=== PATIENT | female | born 1965 | race Caucasian/White ===

== ENCOUNTER 2016-08-13 10:15 | Emergency (ER) | payer OTHER ==
[2016-08-13 10:43] LABS: HEMOGLOBIN 13.9 gm/dl (12.3-15.3); RED BLOOD COUNT 5.09 M/UL (4.00-5.10); WHITE BLOOD COUNT 11.8 K/UL (4.5-11.0)
[2016-08-13 11:04] LABS: BUN/CREATININE RATIO 14 (0-10)
== END 2016-08-13 13:25 | disposition home or self-care (01) ==
LOC: ER1 10:15
PROVIDERS: Family Medicine
DX: J44.9 Chronic obstructive pulmonary disease, unspecified (principal); I10 Essential (primary) hypertension; Z90.49 Acquired absence of other specified parts of digestive tract; Z79.899 Other long term (current) drug therapy
CPT/HCPCS: 36415; 71020; 80053; 82550; 82553; 83874; 84484; 85025; 93005; 99285; J2930

== ENCOUNTER → 2020-03-31 | Outpatient (CLI) | payer MEDICARE, SELFPAY ==
[~2020-03-31] MED LIST: ASPIR 8181 MG PO; AUGMENTIN 875-1 EACH PO; CEFEPIME 22 GM/100 M IV; CEFEPIME-D2 GM/50 ML IV; CLEOCIN HCL300 MG PO; DOXYCYCLINE HY100 M2 PO; ELIQUIS 2.5 MG2.5 MG PO; ELIQUIS2.5 MG PO; FERROUS SULFAT325 M2 PO; HYDROCODON-ACE1 EAC6 PO; HYDROCORTISO453.6 G2 TOP; KEFLEX CAP 500500 MG PO; LEVOTHYROXINE100 MCG PO; LEVOTHYROXINE25 MCG PO; LORTAB 7.5-3251 EACH PO; MEDROL4 MG PO; NAPROSYN500 MG PO; NITROSTAT0.4 MG SL; NORVASC10 MG PO; NYSTATIN1 EAC2 MC; NYSTATIN60 GM TP; OXYCODON-ACETA1 EAC1 PO; PERCOCET 5/325 T1 EA PO; POLYETHYLENE GL17 GM PO; PREDNISONE 50 M50 MG PO; PYRIDIUM100 MG PO; ROCEPHIN 1 GM AD1 GM IV; SENNA-TIME S T1 EACH PO; TYLENOL PM PO; VENTOLIN HFA 66.7 GM INH; ZOFRAN 4 MG TAB4 MG PO; ZOFRAN ODT 4 MG4 MG PO
[2020-03-31 13:18] LABS: HEMOGLOBIN 13.9 gm/dl (12.3-15.3); RED BLOOD COUNT 5.73 M/UL (4.00-5.10); WHITE BLOOD COUNT 13.9 K/UL (4.5-11.0)
[2020-03-31 13:44] LABS: BUN/CREATININE RATIO 12 (0-10)
== END ==
LOC: OPSV2 12:00 → EDSTATUS 12:00 → OPSV2 12:10
PROVIDERS: Orthopaedic Surgery
DX: Z01.818 Encounter for other preprocedural examination (principal); Z98.890 Other specified postprocedural states; R94.31 Abnormal electrocardiogram [ECG] [EKG]
CPT/HCPCS: 36415; 80048; 85025; 87081; 87086; 93005

== ENCOUNTER → 2020-04-06 | Outpatient (CLI) | payer MEDICARE ==
[2020-04-06 12:58] LABS: BUN/CREATININE RATIO 21 (0-10)
== END ==
LOC: OPSV 10:38
PROVIDERS: Orthopaedic Surgery
DX: Z53.8 Procedure and treatment not carried out for other reasons (principal)
CPT/HCPCS: 80048; 86850; 86900; 86901

== ENCOUNTER 2020-04-07 05:38 | Inpatient (IN) | payer MEDICARE, SELFPAY ==
[~2020-04-07] VITALS: Ht 170.2 cm; Wt 120.2 kg
[~2020-04-07 05:38] MED LIST changes: -CEFEPIME-D2 GM/50 ML IV; -FERROUS SULFAT325 M2 PO; -HYDROCODON-ACE1 EAC6 PO; -LEVOTHYROXINE25 MCG PO; -OXYCODON-ACETA1 EAC1 PO; -POLYETHYLENE GL17 GM PO
[2020-04-07] MEDS ORDERED: HYDROCODON-ACE1 EAC6 PO (06:50)
[2020-04-07] MEDS ORDERED: ELIQUIS2.5 MG PO (14:22)
[2020-04-07] MEDS ORDERED: OXYCODON-ACETA1 EAC1 PO (14:22)
[2020-04-08 03:39] LABS: HEMOGLOBIN 9.7 gm/dl (12.3-15.3); RED BLOOD COUNT 4.06 M/UL (4.00-5.10); WHITE BLOOD COUNT 22.5 K/UL (4.5-11.0)
[2020-04-09 03:01] LABS: HEMOGLOBIN 8.2 gm/dl (12.3-15.3); WHITE BLOOD COUNT 17.6 K/UL (4.5-11.0)
[2020-04-09 03:03] LABS: RED BLOOD COUNT 3.39 M/UL (4.00-5.10)
--- NOTE | 2020-04-09 12:45 | NUR ---
CHANGED LEFT KNEE DRSGN , PAINTED SIVAN AND SUTURES WITH BETADINE PER [facility] PA V/O. EDGES APPROXIMATED WELL , NO REDNESS NOTED OR DRGN ADAPTIC THEN APPLIED, LIGHTLY WRAPPED WITH PREETHI TO HOLD IN PLACE , HEMOVAC LEFT IN PLACE 30 CC WAS EMPYTED,PT TOLERTED WELL.
[2020-04-10 02:53] LABS: HEMOGLOBIN 7.4 gm/dl (12.3-15.3); RED BLOOD COUNT 3.08 M/UL (4.00-5.10); WHITE BLOOD COUNT 12.3 K/UL (4.5-11.0)
[2020-04-10 03:41] LABS: BUN/CREATININE RATIO 24 (0-10)
[2020-04-11 03:14] LABS: HEMOGLOBIN 7.5 gm/dl (12.3-15.3); RED BLOOD COUNT 3.14 M/UL (4.00-5.10); WHITE BLOOD COUNT 9.7 K/UL (4.5-11.0)
[2020-04-11 03:38] LABS: BUN/CREATININE RATIO 16 (0-10)
[2020-04-11] MEDS ORDERED: POLYETHYLENE GL17 GM PO (09:49)
[2020-04-11] MEDS ORDERED: FERROUS SULFAT325 M2 PO (09:49)
[2020-04-11] MEDS ORDERED: CEFEPIME-D2 GM/50 ML IV (09:49)
[2020-04-11] MEDS ORDERED: LEVOTHYROXINE25 MCG PO (09:49)
[2020-04-12 14:31] LABS: HEMOGLOBIN 8.9 gm/dl (12.3-15.3)
[2020-04-13 06:45] LABS: HEMOGLOBIN 8.3 gm/dl (12.3-15.3); RED BLOOD COUNT 3.39 M/UL (4.00-5.10); WHITE BLOOD COUNT 8.9 K/UL (4.5-11.0)
[2020-04-13 07:20] LABS: BUN/CREATININE RATIO 14 (0-10)
[2020-04-14 08:28] LABS: HEMOGLOBIN 8.6 gm/dl (12.3-15.3)
[2020-04-14 08:44] LABS: BUN/CREATININE RATIO 13 (0-10)
--- NOTE | 2020-04-14 18:08 | NUR ---
1300 DRESSING REMOVED FROM LEFT KNEE. SUTURES CLEANED WITH IODINE. COVERED WITH ISLAND DRESSING AND RE-WRAPPED WITH PREETHI BANDAGE
[2020-04-15 11:30] LABS: HEMOGLOBIN 8.2 gm/dl (12.3-15.3); RED BLOOD COUNT 3.36 M/UL (4.00-5.10); WHITE BLOOD COUNT 9.3 K/UL (4.5-11.0)
[2020-04-15 11:48] LABS: BUN/CREATININE RATIO 14 (0-10)
[2020-04-17 10:19] LABS: HEMOGLOBIN 8.7 gm/dl (12.3-15.3); RED BLOOD COUNT 3.58 M/UL (4.00-5.10); WHITE BLOOD COUNT 7.1 K/UL (4.5-11.0)
[2020-04-17 10:35] LABS: BUN/CREATININE RATIO 12 (0-10)
== END 2020-04-18 15:13 | disposition home health service (06) | DRG 467 ==
LOC: OR 05:38 → EDSTATUS 09:45 → M/S 11:55
PROVIDERS: Internal Medicine; Internal Medicine Infectious Disease; Nurse Practitioner Family; Physician Assistant; ADMIT Orthopaedic Surgery
PROC: 0SWD0JZ Revision of Synthetic Substitute in Left Knee Joint, Open Approach (ICD-10-PCS; 2020-04-07)
PROC: 0SPD08Z Removal of Spacer from Left Knee Joint, Open Approach (ICD-10-PCS; principal; 2020-04-07 09:45)
PROC: 30233N1 Transfusion of Nonautologous Red Blood Cells into Peripheral Vein, Percutaneous Approach (ICD-10-PCS; 2020-04-11)
PROC: 02HV33Z Insertion of Infusion Device into Superior Vena Cava, Percutaneous Approach (ICD-10-PCS; 2020-04-12)
PROC: B548ZZA Ultrasonography of Superior Vena Cava, Guidance (ICD-10-PCS; 2020-04-12)
DX: T84.54XA Infection and inflammatory reaction due to internal left knee prosthesis, initial encounter (principal); D62 Acute posthemorrhagic anemia; N17.9 Acute kidney failure, unspecified; K56.7 Ileus, unspecified; Z20.822 Contact with and (suspected) exposure to COVID-19; I10 Essential (primary) hypertension; J45.909 Unspecified asthma, uncomplicated; E66.01 Morbid (severe) obesity due to excess calories; D72.829 Elevated white blood cell count, unspecified; E03.8 Other specified hypothyroidism; R42 Dizziness and giddiness; G89.29 Other chronic pain; M54.9 Dorsalgia, unspecified; Q82.8 Other specified congenital malformations of skin; Z90.49 Acquired absence of other specified parts of digestive tract; Z83.3 Family history of diabetes mellitus; Z80.1 Family history of malignant neoplasm of trachea, bronchus and lung; Z28.21 Immunization not carried out because of patient refusal
CPT/HCPCS: 36415; 36430; 70450; 71045; 73560; 73630; 74018; 80048; 80053; 81001; 82550; 82553; 82728; 83540; 83550; 84439; 84443; 84484; 85014; 85018; 85025; 85027; 86140; 86850; 86900; 86901; 86920; 87070; 87205; 94640; 94664; 94760; 97110; 97110-GP-CQ; 97116; 97116-GP-CQ; 97162; 97166; 97530; 97530-GP-CQ; C1713; C1776; J0592; J0690; J0692; J1100; J1170; J1644; J1885; J2001; J2212; J2250; J2270; J2405; J2704; J2710; J2795; J3010; J3370; J7030; J7050; J7070; J7120; P9016; U0003

== ENCOUNTER → 2020-08-19 | Outpatient (CLI) | payer MEDICARE ==
[~2020-08-19] MED LIST changes: +CEFEPIME-D2 GM/50 ML IV; +FERROUS SULFAT325 M2 PO; +HYDROCODON-ACE1 EAC6 PO; +LEVOTHYROXINE25 MCG PO; +OXYCODON-ACETA1 EAC1 PO; +POLYETHYLENE GL17 GM PO
[2020-08-19 09:20] LABS: HEMOGLOBIN 12.5 gm/dl (12.3-15.3); RED BLOOD COUNT 5.53 M/UL (4.00-5.10)
== END ==
LOC: LAB 08:15
PROVIDERS: Nurse Practitioner
DX: T84.54XA Infection and inflammatory reaction due to internal left knee prosthesis, initial encounter (principal)
CPT/HCPCS: 36415; 85027; 85652; 86140

== ENCOUNTER → 2020-08-22 | Outpatient (CLI) | payer MEDICARE | LOC: KOH-I 14:30 | DX: R10.84 Generalized abdominal pain (principal) | CPT/HCPCS: 74150 ==

== ENCOUNTER → 2020-09-16 | Outpatient (CLI) | payer MEDICARE ==
[2020-09-16 13:17] LABS: HEMOGLOBIN 12.5 gm/dl (12.3-15.3); RED BLOOD COUNT 5.46 M/UL (4.00-5.10); WHITE BLOOD COUNT 9.7 K/UL (4.5-11.0)
== END ==
LOC: LAB 12:20
PROVIDERS: Nurse Practitioner Family
DX: T84.52XA Infection and inflammatory reaction due to internal left hip prosthesis, initial encounter (principal); T84.53XA Infection and inflammatory reaction due to internal right knee prosthesis, initial encounter; M25.569 Pain in unspecified knee
CPT/HCPCS: 36415; 85027; 85652; 86140

== ENCOUNTER → 2020-10-10 | Outpatient (CLI) | payer MEDICARE ==
[2020-10-10 12:47] LABS: RED BLOOD COUNT 5.91 M/UL (4.00-5.10); WHITE BLOOD COUNT 13.1 K/UL (4.5-11.0)
[2020-10-10 13:07] LABS: BUN/CREATININE RATIO 11 (0-10)
[2020-10-11 09:14] LABS: TRIIODOTHYRONINE (T3) 134 ng/dL (71-180)
[2020-10-11 11:14] LABS: RHEUMATOID ARTHRITIS FACTOR <10.0 IU/mL (0.0-13.9)
== END ==
LOC: LAB 11:39
PROVIDERS: Nurse Practitioner
DX: R53.83 Other fatigue (principal); M25.562 Pain in left knee; E78.5 Hyperlipidemia, unspecified; E07.9 Disorder of thyroid, unspecified
CPT/HCPCS: 36415; 80053; 80061; 81001; 83036; 84436; 84443; 84480; 84550; 85025; 85652; 86038; 86140; 86431